=== PATIENT | male | born 1945 | race Caucasian/White ===

== ENCOUNTER 2017-11-20 15:37 | Inpatient (IN) | payer MEDICARE, SELFPAY ==
[2017-11-20] VITALS (7 sets, daily range): BP systolic 105–116; BP diastolic 64–98; PULSE 73–90; RESP 17–20; TEMP 36.7; O2SAT 96–100; BMI 28.5; BMI 28.6; BMI 28.2
--- NOTE | 2017-11-20 15:42 | RAD_ITS ---
STUDY: X-RAY CHEST REASON FOR EXAM: Male, 72 years old. Worsening dyspnea and edema since Saturday. TECHNIQUE: Portable chest COMPARISON: None. FINDINGS: Left pectoral triple lead AICD device. Background pulmonary features consistent with underlying COPD. Suspected small right effusion with blunting of the right costophrenic angle. Mild bibasilar atelectasis. There is no jarod pattern of perihilar interstitial edema or pulmonary vascular congestion. Mild cardiomegaly. Unremarkable mediastinal silhouette, ann and pleural margins. No acute osseous or upper abdominal process. RAD/Chest 1 View (Portable) IMPRESSION: Possible small right effusion. Underlying COPD/emphysema is suspected. No other acute cardiopulmonary process is evident. There are no convincing features of acute CHF. Electronically Signed: Erlin Schwartz, at 16:02 EDT Tel , Service support ,
--- NOTE | 2017-11-20 15:42 | EKG12_ITS ---
Test Reason : Blood Pressure : / mmHG Vent. Rate : 091 BPM Atrial Rate : 091 BPM P-R Int : 114 ms QRS Dur : 136 ms QT Int : 458 ms P-R-T Axes : 090 210 155 degrees QTc Int : 563 ms Atrial-sensed ventricular-paced rhythm Biventricular pacemaker detected Abnormal ECG Confirmed by MILTON CRAWFORD, LUPILLO ([id number]), communications editor STEPHEN CONNELL ([id number]) on 11/22/2017 1:35:24 PM Referred By: Chapincito Durham Confirmed By:LUPILLO ROSE MD
[2017-11-20 17:08] LABS: Absolute Lymphocyte Count 1.16 X10^3/ul (0.83-4.51); Absolute Neutrophil Count 5.3 X10^3/uL (2.0-7.7); Basophil# 0.04 X10^3/uL; Basophil% 0.5 % (0-1); Eosinophil# 0.25 X10^3/uL; Eosinophils% 3.4 % (0-5); Hemoglobin 16.3 g/dl (13.0-16.5); Lymphocyte # 1.16 X10^3/ul (4.0); Lymphocyte % 15.6 % (19-41); Mean Corp Hgb Conc 33.3 g/gl (32-36); Mean Corpuscular Hgb 32.3 pg (27.0-32.0); Mean Corpuscular Volume 97.2 fL (80-94); Mean Platelet Vol. 12.5 fl (6.2-12.0); Monocyte# 0.65 X10^3/uL; Monocyte% 8.7 % (0-10); Neutrophil # 5.32 X10^3/uL (2.7-7.7); Neutrophil % 71.5 % (47-70); Platelet Count 175 K/mm3 (150-450); RBC Distribution Width CV 13.7 % (11.6-14.6); RBC Distribution Width SD 48.2 fl (35.1-43.9); Red Blood Count 5.04 M/mm3 (4.6-6.2); White Blood Count 7.4 K/mm3 (4.4-11.0)
[2017-11-20 17:14] LABS: POSITIVE COUNT NO; POSITIVE DIFFERENTIAL NO; POSITIVE MORPHOLOGY NO
[2017-11-20 17:41] LABS: ALB/GLOB Ratio 0.9 RATIO (0.9-2.4); AST(SGOT) 40 U/L (15-37); Alanine Aminotransfer ALT/SGPT 26 U/L (16-61); Albumin, Serum 3.8 g/dL (3.2-5.0); Alkaline Phosphatase 113 U/L (45-117); Anion Gap 12 (5-15); BUN 20 mg/dL (7-18); BUN/Creat Ratio 12.6 RATIO (10-20); Calcium,Total 9.1 mg/dL (8.5-10.1); Chloride 98 mmol/L (98-107); Creatinine, Serum 1.59 mg/dL (0.70-1.30); EST Glomerular Filtration Rate 46 mL/min (>60); Est Glom Filt Rate - Afr Amer 55 mL/min (>60); Estimated Creatinine Clearance 40.03 ml/min; Globulin 4.1 g/dL (2.2-4.2); Glucose 143 mg/dL (74-106); Potassium 4.6 mmol/L (3.5-5.1); Protein, Total 7.9 g/dL (6.4-8.2); Sodium Level 139 mmol/L (136-145)
[2017-11-20 17:55] LABS: BNP,B-Type NATRIURETIC PEPTIDE 1178.3 pg/mL (0-100)
--- NOTE | 2017-11-20 17:57 | ED.VISSUMM ---
- ER Visit Summary Date of Service: 11/20/17 Chief Complaint: Shortness of breath History of Present Illness: The patient is a 72 M who has been short of breath for 5 days. He states is worse with exertion and better with rest. He denies a cough or rhinorrhea. He has some intermittent chest pain which she describes as heaviness. He saw his clinical rn manager, Dr. Rogers on Saturday. They changed his Lasix from 40 mg 4 times a day to 80 mg twice a day. He states that since that time the leg swelling he has been having is getting worse. He states his weight has been stable but does not know how much she weighed today. Physical Examination: Vital signs reviewed. HEENT exam unremarkable. Heart is regular rate and rhythm without murmurs. Lungs diminished sounds in the right base. Abdomen is soft and nontender. Extremities reveal 2+ symmetric edema to the knees bilaterally. skin exam normal. Neurologic exam normal. Test Results: EKG is paced with a rate of 91. Nonspecific changes are seen. Chest x-ray reveals a right pleural effusion but no signs of acute interstitial edema. Creatinine 1.59, AST 40, T bili 2.2. BNP 1178. His troponin is normal. Emergency Department Course and Treatment: Received a dose of Lasix in the ER. Spoke with his clinical rn manager, Dr. Rogers. He recommended admission to the patient can get diuresed. He said that he did a echocardiogram last week and his ejection fraction was 10-15%. He was going to recommend seeing a cardiothoracic surgeon but he feels that there may not be much to do for this patient. I discussed the case with hospitalist to admit the patient Treatment Plan: [] Disposition: Admit Impression: Peripheral edema, chronic systolic heart failure This note was generated with Evolver dictation software. It may contain incorrect words, spelling, and punctuation that were not noted in review of the chart prior to signing ED Disposition - Plan for ED Patient: Chief Complaint: Shortness of Breath Referrals: [facility] Doctor,Out of [Primary Care Provider] -
[2017-11-20] MEDS: Furosemide 40 MG/4 ML Vial IV (18:51)
--- NOTE | 2017-11-20 19:07 | HP.PCM_ITS ---
Problem List (1) Acute exacerbation of CHF (congestive heart failure) Status: Acute Qualifiers: Heart failure type: systolic Qualified Code(s): I50.23 - Acute on chronic systolic (congestive) heart failure History of Present Illness Date of Admission: 11/20/17 Chief Complaint: Shortness of breath and bilateral lower extremity swelling. The patient is a 72 year old M with a significant history of CAD status post stents and CABG; defibrillator/pacemaker; hypertension and systolic heart failure who presented because of progressively worsening shortness of breath and lower extremity swelling. The patient noticed a dramatic increase in his lower extremity swelling on the day of his admission. He states that since June 2017 he has noticed increased swelling in his bilateral legs and shortness of breath. Five days ago the patient went to see his cardiology, Dr. Rogers and his Lasix was optimized from 4 times a day to 2 times a day. ED doctor contacted patient's cardiology who stated that patient EF 5 days ago was 10-15%. Per family the patient had a valvular heart disease which he is discussing further management with his brattice builder. ED doctor reports that the patient cardiology will be faxing his last note and echocardiogram to our hospital during business hours on 11/21/2017. At the ED patient was noted to have elevated BNP and chest x-ray findings of possible small right effusion Past Medical History Allergies ramipril [From Altace] Allergy (Verified 11/20/17 15:40) Angioedema Home Medications: Ambulatory Orders Medication Instructions Recorded Aspirin E.C. [Ecotrin] 162 mg PO DAILY@0800 11/20/17 Carvedilol [Carvedilol] 12.5 mg PO BID 11/20/17 Furosemide [Furosemide] 80 mg PO BID 11/20/17 Smoking Status: Former smoker Tobacco Use: Non-smoker Alcohol: Occasional - *Family History Maternal History Items: Heart Disease Paternal History Items: COPD Sibling History Items: Heart Disease, Stroke Review of Systems HEENT: Denies: Head Aches, Sinus Congestion, Sinus Drainage Cardiovascular: Reports: Chest Pain - Intermittent heaviness Respiratory: Reports: Shortness of Breath Gastrointestinal: Denies: Abdominal Pain, Nausea, Vomiting Genitourinary: Denies: Dysuria Musculoskeletal: Reports: - - Bilateral leg swelling Skin: Denies: Rash, Wounds Neurological: Denies: Numbness, Tingling, Focal weakness Psychiatric: Denies: Anxiety, Depression, Homicidal Ideations, Suicidal Ideations Hematologic/ Lymphatic: Reports: Adenopathy VTE Information - Inpt Only VTE Present on Admission: No VTE Mechan Device Prophylaxis: None VTE Pharm Prophylaxis ordered?: Yes Patient Problems: Active and Suspected Problems Acute exacerbation of CHF (congestive heart failure) (Acute) - Physical Exam General: Alert, Oriented x3, Cooperative HEENT: Atraumatic, PERRLA, EOMI, Normocephalic Neck: Supple, No JVD, Negative Carotid Bruits Lungs: Diminished Cardiovascular: Regular rate, No rub noted, - - S3 present Abdomen: Bowel Sounds Present Extremities: Edema - A bilateral lower legs to knee Skin: No rashes, No breakdown Musculoskeletal: No Tenderness to Palpation of Joints or Extremities Lymphatic: No Cervical, Supraclavicular, or Inguinal Adenopathy Neurological: Cranial nerves II-XII grossly intact Psych/Mental Status: Normal Affect, Appropriate Vital Signs Temp Pulse Resp BP Pulse Ox 98.1 F 82 17 116/98 H 97 11/20/17 15:37 11/20/17 19:02 11/20/17 19:02 11/20/17 19:02 11/20/17 19:02 Oxygen Flow Rate (L/min) 2 Oxygen Delivery Method Nasal Cannula Weight: 85.2 kg Body Mass Index (BMI) 28.5 Laboratory Tests Past 24 Hrs 11/20/17 11/20/17 11/20/17 16:50 16:50 16:50 WBC 7.4 RBC 5.04 Hgb 16.3 Hct 49.0 MCV 97.2 H MCH 32.3 H MCHC 33.3 RDW 13.7 RDW Differential 48.2 H Plt Count 175 MPV 12.5 H Immature Gran % (Auto) 0.300 Neut % (Auto) 71.5 H Lymph % (Auto) 15.6 L Monona % (Auto) 8.7 Eos % (Auto) 3.4 Baso % (Auto) 0.5 Absolute Neuts (auto) 5.3 Absolute Lymphs (auto) 1.16 Total Counted Not Reportable Sodium 139 Potassium 4.6 Chloride 98 Carbon Dioxide 29.0 Anion Gap 12 BUN 20 H Creatinine 1.59 H Estim Creat Clear Calc 40.03 Est GFR (MDRD) Af Amer 55 L Est GFR (MDRD) Non-Af 46 L BUN/Creatinine Ratio 12.6 Glucose 143 H Calcium 9.1 Total Bilirubin 2.20 H AST 40 H ALT 26 Alkaline Phosphatase 113 Troponin I < 0.015 B-Natriuretic Peptide 1178.3 H Total Protein 7.9 Albumin 3.8 Globulin 4.1 Albumin/Globulin Ratio 0.9 Assessment/Plan All Active Problems Acute exacerbation of CHF (congestive heart failure) (Acute) The patient is a 72 year old M with a significant history of CAD status post stents and CABG; defibrillator/pacemaker; hypertension and systolic heart failure who presented because of progressively worsening shortness of breath and lower extremity swelling; laboratory findings of elevated BNP and chest x- ray findings of right pleural effusion concerning for acute exacerbation of his systolic heart failure Acute exacerbation of systolic heart failure On home Lasix 80 mg p.o. twice daily Received Lasix 40 mg IV push at emergency department Lasix 40 mg IV 3 times daily ordered Carvedilol continued The patient has allergy to ramipril. MAURILIO inhibitors/ARB not started at this time. Kidney disease Chronicity unspecified Creatinine 1.59 Kidney disease could be due to cardiorenal syndrome IV Lasix as above Hypertension Carvedilol continued CAD with CABG and stents Aspirin continued DVT prophylaxis With Lovenox. Code Visit Inpatient E&M: 20816 Init Hosp L2
[2017-11-20] MEDS: Carvedilol 12.5 MG Tablet PO (22:08)
[2017-11-21] VITALS (11 sets, daily range): BP systolic 91–108; BP diastolic 57–76; PULSE 64–84; RESP 14–20; TEMP 36.4–36.6; O2SAT 96–100
[2017-11-21 04:15] LABS: Hematocrit 42.4 % (40-54); Hemoglobin 14.2 g/dl (13.0-16.5); Mean Corp Hgb Conc 33.5 g/gl (32-36); Mean Corpuscular Hgb 32.6 pg (27.0-32.0); Mean Corpuscular Volume 97.2 fL (80-94); Mean Platelet Vol. 12.4 fl (6.2-12.0); Platelet Count 140 K/mm3 (150-450); RBC Distribution Width CV 13.4 % (11.6-14.6); RBC Distribution Width SD 46.4 fl (35.1-43.9); Red Blood Count 4.36 M/mm3 (4.6-6.2); White Blood Count 6.6 K/mm3 (4.4-11.0)
[2017-11-21 04:21] LABS: Scan Indicated on CBC? Y/N NO
[2017-11-21 04:27] LABS: Anion Gap 9 (5-15); BUN 18 mg/dL (7-18); BUN/Creat Ratio 15.3 RATIO (10-20); Calcium,Total 8.3 mg/dL (8.5-10.1); Chloride 102 mmol/L (98-107); Creatinine, Serum 1.18 mg/dL (0.70-1.30); EST Glomerular Filtration Rate 64 mL/min (>60); Est Glom Filt Rate - Afr Amer 78 mL/min (>60); Estimated Creatinine Clearance 53.94 ml/min; Glucose 110 mg/dL (74-106); Potassium 3.2 mmol/L (3.5-5.1); Sodium Level 141 mmol/L (136-145)
[2017-11-21] MEDS: Furosemide 40 MG/4 ML Vial IV ×3 (05:31→21:40)
[2017-11-21] MEDS: Aspirin E.C. 81 MG Tablet 162 MG PO (08:20)
[2017-11-21] MEDS: Carvedilol 12.5 MG Tablet PO ×2 (08:20→21:40)
--- NOTE | 2017-11-21 12:22 | CASEMGMT ---
See RN CM Assessment Link. DC PLAN: HOME - pt states he is indepenent, no needs identified. His daughter was in room and states family is able to assist with any needs. Ching VINCENT RN ACM
--- NOTE | 2017-11-21 14:35 | CHAPLAIN ---
Type of Pastoral Visit _x__ Initial Visit ___ Follow-up Visit ___ On-call Visit ___ General Patient Visit ___ Spiritual Assessment ___ Family Conference ___ Bereavement ___ Rapid Response ___ Code Blue ___ Other (describe below) Pastoral Care Referral From _x__ Patient ___ Family ___ Nurse ___ Physician ___ Printed Products Assembler ___ Tap Builder ___ Other (describe below) Sacrament/Intervention _x__ Active listening ___ Anointing ___ Jainism ___ Bereavement ___ Communion ___ Isela exploration ___ _x__ Life review _x__ Prayer ___ Reconciliation ___ Sacrament of Sick _x__ Supportive presence ___ Wedding ___ Other (describe below) Pastoral Comments
--- NOTE | 2017-11-21 15:00 | PN_ITS ---
Patient Problems: Active and Suspected Problems Acute exacerbation of CHF (congestive heart failure) (Acute) Subjective: Patient was seen and examined. Denies any complains. Feels improved. Denies worsening shortness of breath, orthopnea, or PND. Has been diuresing a lot. Vitals/I&O's: Vital Signs Temp Pulse Resp BP Pulse Ox 97.8 F 74 18 105/67 96 11/21/17 08:15 11/21/17 11:13 11/21/17 08:15 11/21/17 08:15 11/21/17 08:15 Oxygen Flow Rate (L/min) 2 Oxygen Delivery Method Room Air Weight: 84.2 kg Body Mass Index (BMI) 28.2 Intake and Output for Last 24 Hours 11/19/17 11/20/17 11/21/17 23:59 23:59 23:59 Intake Total 300 / 300 Output Total 400 / 400 1275 / 1275 Balance -400 / -400 -975 / -975 General: Alert, Oriented x3, Cooperative, No apparent distress HEENT: Atraumatic, PERRLA, EOMI, Normocephalic Oral: Moist Mucosa Neck: Supple, No JVD, Negative Carotid Bruits Lungs: Clear to auscultation, Normal air movement, Diminished - at lung bases Cardiovascular: Regular rate, Regular Rhythm, Normal S1, Normal S2, No murmurs Abdomen: Bowel Sounds Present, Soft, Non Tender, Non-Distended, No Hepato- splenomegaly Extremities: No cyanosis, Edema - +3, pitting Skin: No rashes, No breakdown Musculoskeletal: No Tenderness to Palpation of Joints or Extremities Lymphatic: No Cervical, Supraclavicular, or Inguinal Adenopathy Neurological: Cranial nerves II-XII grossly intact Psych/Mental Status: Normal Affect, Appropriate Laboratory Results 11/20/17 21:55: Troponin I < 0.015 11/21/17 00:28: Troponin I < 0.015 11/21/17 03:50: Sodium 141, Potassium 3.2 L, Chloride 102, Carbon Dioxide 30.0, Anion Gap 9, BUN 18, Creatinine 1.18, Estim Creat Clear Calc 53.94, Est GFR ( MDRD) Af Amer 78, Est GFR (MDRD) Non-Af 64, BUN/Creatinine Ratio 15.3, Glucose 110 H, Calcium 8.3 L 11/21/17 03:50: WBC 6.6, RBC 4.36 L, Hgb 14.2, Hct 42.4, MCV 97.2 H, MCH 32.6 H , MCHC 33.5, RDW 13.4, RDW Differential 46.4 H, Plt Count 140 L, MPV 12.4 H 11/21/17 03:50: Troponin I < 0.015 Current Medications Acetaminophen (Tylenol) 650 mg PO Q6H PRN PRN PRN Reason: Mild Pain (scale 0-3)/T>100.7 Aspirin (Ecotrin) 162 mg PO DAILY@0800 [facility] Last Admin: 11/21/17 08:20 Dose: 162 mg Carvedilol (Coreg) 12.5 mg PO BID [facility] Last Admin: 11/21/17 08:20 Dose: 12.5 mg Docusate Sodium (Colace) 200 mg PO BID PRN PRN PRN Reason: Constipation Enoxaparin Sodium (Lovenox) 40 mg SC DAILY@1000 [facility] Last Admin: 11/21/17 08:17 Dose: Not Given Furosemide (Lasix) 40 mg IV Q8 [facility] Last Admin: 11/21/17 14:00 Dose: 40 mg Magnesium Hydroxide (Milk Of Magnesia) 30 ml PO DAILY PRN PRN Reason: Constipation Ondansetron HCl (Zofran) 4 mg IV Q8H PRN PRN PRN Reason: Nausea Sodium Chloride () 5 - 30 ml IV UD PRN PRN Reason: SALINE FLUSH Medical Necessity - Tobacco Use Smoking Status: Former smoker Tobacco Use: Non-smoker Assessment/Plan All Active Problems Acute exacerbation of CHF (congestive heart failure) (Acute) 72y/o male with past medical history of CAD status post stents, CABG, status post ICD/pacemaker, hypertension, chronic systolic CHF, EF of 10-15% who comes in with shortness of breath and bilateral lower extremity edema 1. Acute on chronic systolic CHF, EF 10-15%, improving with IV Lasix, continue on carvedilol, aspirin 2. MARTINA on CKD stage III, secondary to cardiorenal disease, creatinine improved from 1.59-1.18, continue on Lasix 3. CAD status post stents, CABG, continue on aspirin, not on statins, will discuss with Dr. Rogers 4. Hypertension, controlled, continue on carvedilol 8. DVT PPx- Lovenox SC Code Visit Inpatient E&M: 38043 Subs Hosp L2
[2017-11-22 03:07] VITALS: PULSE 81
[2017-11-22 03:28] VITALS: BP 110/80; PULSE 80; RESP 18; TEMP 36.8; O2SAT 96
[2017-11-22 05:57] VITALS: BP 100/73; PULSE 81; RESP 18; TEMP 36.6; O2SAT 96
[2017-11-22] MEDS: Furosemide 40 MG/4 ML Vial IV (06:03)
[2017-11-22] MEDS: Magnesium Hydroxide 30 ML UDC PO (06:03)
[2017-11-22] MEDS: 0.9% NaCl Peripheral Flush Adult/Peds IV (06:04)
[2017-11-22 06:55] LABS: Anion Gap 8 (5-15); BUN 18 mg/dL (7-18); BUN/Creat Ratio 15.1 RATIO (10-20); Calcium,Total 8.8 mg/dL (8.5-10.1); Chloride 102 mmol/L (98-107); Creatinine, Serum 1.19 mg/dL (0.70-1.30); EST Glomerular Filtration Rate 64 mL/min (>60); Est Glom Filt Rate - Afr Amer 77 mL/min (>60); Estimated Creatinine Clearance 53.49 ml/min; Glucose 125 mg/dL (74-106); Potassium 3.8 mmol/L (3.5-5.1); Sodium Level 140 mmol/L (136-145)
[2017-11-22 06:59] VITALS: PULSE 80
--- NOTE | 2017-11-22 07:44 | NURSING ---
This RN has reviewed and agrees with all documentation done by Ilda MARIE. 11/21-11/22 7pm-7am
[2017-11-22 10:30] VITALS: BP 103/77; PULSE 84; RESP 18; TEMP 36.4; O2SAT 95
[2017-11-22] MEDS: Carvedilol 12.5 MG Tablet PO (10:33)
[2017-11-22] MEDS: Aspirin E.C. 81 MG Tablet 162 MG PO (10:34)
[2017-11-22 10:59] VITALS: PULSE 76
--- NOTE | 2017-11-22 12:34 | PCM.DC ---
- Discharge Diagnoses Current Active Problems: Current Active and Chronic Problems Acute exacerbation of CHF (congestive heart failure) (Acute) Reason(s) for Visit for Discharge Instructions: Shortness of breath You will use the following diet at home:: Cardiac Your food should be the consistency of: Regular Your liquids should be the consistency of: Regular/Thin Discharge Activity: Return to Normal Activity Additional Instructions: Continue to take all your medications. You should be on a heart healthy diet- low salt, low fat. You need to take your weights daily and let your doctor know if you gain > 4 pounds. You have been recommended to wear a VONNIE hose on your legs, 12 hours on, 12 hours off. You will need a repeat blood work within 1 week to check on your kidney function whilst on Lasix. Allergies/Adverse Reactions: Allergies ramipril [From Altace] Allergy (Verified 11/20/17 15:40) Angioedema Medications to take at Discharge Aspirin E.C. [Ecotrin] 162 mg PO DAILY@0800 11/20/17 Carvedilol 12.5 mg PO BID 11/20/17 Furosemide 80 mg PO BID 11/20/17 Orders to be completed after discharge: Basic Metabolic Profile (BMP) Location: Laboratory Primary Care Physician: [facility] Doctor,Out of [Primary Care Provider] - Please follow up with your Primary Care Physician in: within 1-2 weeks Test Results: Test results from this visit will be discussed in further detail at your follow-up appointment, if applicable. Please Follow Up With: Roger Mondragon MD When: in 1 weeks Proposed Discharge Date: 11/22/17
--- NOTE | 2017-11-22 12:43 | DCINST_ITS ---
- Discharge Diagnoses Current Active Problems: Current Active and Chronic Problems Acute exacerbation of CHF (congestive heart failure) (Acute) Reason(s) for Visit for Discharge Instructions: Shortness of breath You will use the following diet at home:: Cardiac Your food should be the consistency of: Regular Your liquids should be the consistency of: Regular/Thin Discharge Activity: Return to Normal Activity Additional Instructions: Continue to take all your medications. You should be on a heart healthy diet- low salt, low fat. You need to take your weights daily and let your doctor know if you gain > 4 pounds. You have been recommended to wear a VONNIE hose on your legs, 12 hours on, 12 hours off. You will need a repeat blood work within 1 week to check on your kidney function whilst on Lasix. Allergies/Adverse Reactions: Allergies ramipril [From Altace] Allergy (Verified 11/20/17 15:40) Angioedema Medications to take at Discharge Aspirin E.C. [Ecotrin] 162 mg PO DAILY@0800 11/20/17 Carvedilol 12.5 mg PO BID 11/20/17 Furosemide 80 mg PO BID 11/20/17 Orders to be completed after discharge: Basic Metabolic Profile (BMP) Location: Laboratory Primary Care Physician: [facility] Doctor,Out of [Primary Care Provider] - Please follow up with your Primary Care Physician in: within 1-2 weeks Test Results: Test results from this visit will be discussed in further detail at your follow- up appointment, if applicable. Please Follow Up With: Roger Mondragon MD When: in 1 weeks Proposed Discharge Date: 11/22/17
--- NOTE | 2017-11-22 12:43 | PCM.DC.SUM ---
Discharge Date and Diagnosis Date of Admission: 11/20/17 Date of Discharge: 11/22/17 - Primary Discharge Diagnosis Active and Suspected Problems Acute exacerbation of CHF (congestive heart failure) (Acute) AK I on CKD stage III Cardiorenal disease Hypokalemia Hospital Course and Treatment Imaging Results: Clinical Impression(s) from Imaging Studies Chest X-Ray 11/20/17 15:42 IMPRESSION: Possible small right effusion. Underlying COPD/emphysema is suspected. No other acute cardiopulmonary process is evident. There are no convincing features of acute CHF. Electronically Signed: Erlin Schwartz, at 16:02 EDT Tel , Service support , none Operations: None Procedures: None Summary of Care Provided: 72y/o male with past medical history of CAD status post stents, CABG, status post ICD/pacemaker, hypertension, chronic systolic CHF, EF of 10-15% who comes in with shortness of breath and bilateral lower extremity edema. Patient follows up with Dr. Giancarlo Rogers. 1. Acute on chronic systolic CHF, EF 10-15%, managed with IV Lasix, with improvement in his symptoms, continued on carvedilol, aspirin. Discussed with Dr. Giancarlo Rogers, patient to follow-up with him. He was offered VONNIE hoses in the hospital but refused. Patient appeared frustrated with his chronic conditions. He appeared depressed but denied feeling depressed or losing interest in the things that give him pleasure. 2. MARTINA on CKD stage III, secondary to cardiorenal disease, improved with heart failure management, 3. Hypokalemia, placed during the hospital stay, resolved 4. CAD status post stents, CABG, continue on aspirin, not on statins 5. Hypertension, controlled Discharge Diet: Low fat/ Low Cholesterol, 2000 mg Sodium Diet Discharge Activity: Return to Normal Activity Home Medications: Medications to take at Discharge Aspirin E.C. [Ecotrin] 162 mg PO DAILY@0800 11/20/17 Carvedilol 12.5 mg PO BID 11/20/17 Furosemide 80 mg PO BID 11/20/17 Other Amb Orders: Basic Metabolic Profile (BMP) Location: Laboratory Primary Care Physician: [facility] Doctor,Out of [Primary Care Provider] - Please follow up with your Primary Care Physician in: within 1-2 weeks Please Follow Up With: Roger Mondragon MD When: in 1 weeks Disposition: Home Minutes spent on discharge:: 40 Patient Condition:: Stable Medical Necessity - Tobacco Use Smoking Status: Former smoker Tobacco Use: Non-smoker Meaningful Use Info Meaningful Use Diagnoses (Choose all that apply): None applicable Code Visit Inpatient E&M: 48249 Disch Hosp
== END 2017-11-22 14:20 | disposition home or self-care (01) | DRG 291 ==
LOC: ED 16:56 → PCU 20:05
PROVIDERS: Admitting Provider Hospitalist; Emergency Provider Emergency Medicine; Visit Provider Internal Medicine
DX: I13.0 Hypertensive heart and chronic kidney disease with heart failure and stage 1 through stage 4 chronic kidney disease, or unspecified chronic kidney disease (principal); I50.23 Acute on chronic systolic (congestive) heart failure; N18.3 Chronic kidney disease, stage 3 (moderate); N17.9 Acute kidney failure, unspecified; I25.10 Atherosclerotic heart disease of native coronary artery without angina pectoris; E87.6 Hypokalemia; Z95.1 Presence of aortocoronary bypass graft; Z79.82 Long term (current) use of aspirin; Z87.891 Personal history of nicotine dependence; Z95.810 Presence of automatic (implantable) cardiac defibrillator
CPT/HCPCS: 36415; 71045; 80048; 80053; 83880; 84484; 85025; 85027; 93005; 94760; 97802; 99285; A4216; J1940